=== PATIENT | male | born 1930 | race Caucasian/White ===

== ENCOUNTER 2016-08-04 09:36 | Inpatient (IN) | payer MEDICARE ==
[2016-08-04] VITALS (15 sets, daily range): BP systolic 140–199; BP diastolic 64–104; PULSE 63–112; RESP 19–20; TEMP 97.8–98.5; O2SAT 92–100
[~2016-08-04] VITALS: Ht 182.9 cm; Wt 80.4 kg
--- NOTE | 2016-08-04 09:58 | RADRPT ---
EXAM DATE/TIME: 08/04/2016 09:45 [place] COMPARISON: No previous studies available for comparison. INDICATIONS : Stroke alert, episode of unresponsiveness. RADIATION DOSE: 42.62 CTDIvol (mGy) This report was called by Mahnaz to Reyes at 9: 58 MEDICAL HISTORY : Stroke. SURGICAL HISTORY : None. ENCOUNTER: Initial ACUITY: 1 day PAIN SCALE: 0/10 LOCATION: Bilateral head TECHNIQUE: Multiple contiguous axial images were obtained of the head. Using automated exposure control and adj ustment of the mA and/or kV according to patient size, radiation dose was kept as low as reasonably a chievable to obtain optimal diagnostic quality images. FINDINGS: CEREBRUM: Areas of low attenuation seen throughout the white matter. The ventricles are normal for age. No melina dence of midline shift, mass lesion, hemorrhage or acute infarction. No extra-axial fluid collection s are seen. POSTERIOR FOSSA: The cerebellum and brainstem are intact. The 4th ventricle is midline. The cerebellopontine angle i s unremarkable. EXTRACRANIAL: The visualized portion of the orbits is intact. SKULL: The calvaria is intact. No evidence of skull fracture. 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 Roland Joya MD on August 04, 2016 at 9:52 Board Certified Radiologist. This report was verified electronically.
[2016-08-04 10:01] LABS: AUTOMATED NEUTROPHIL # 4.3 TH/MM3 (1.8-7.7); BASOPHIL # 0.1 TH/MM3 (0-0.2); BASOPHIL % 0.8 % (0.0-2.0); EOSINOPHIL # 0.4 TH/MM3 (0-0.4); EOSINOPHIL % 4.9 % (0.0-4.0); HEMO FLAGS DIFF FINAL; LYMPH % 22.8 % (9.0-44.0); LYMPHOCYTE # 1.6 TH/MM3 (1.0-4.8); MEAN CELL VOLUME 89.1 FL (80.0-100.0); MEAN CORPUSCULAR HEMOGLOBIN 29.8 PG (27.0-34.0); MEAN CORPUSCULAR HGB CONC 33.4 % (32.0-36.0); MONO % 11.2 % (0.0-8.0); NEUT % 60.3 % (16.0-70.0); PLATELET COUNT 235 TH/MM3 (150-450); RED BLOOD COUNT 4.49 MIL/MM3 (4.50-5.90); RED CELL DISTRIBUTION WIDTH 14.4 % (11.6-17.2); WHITE BLOOD COUNT 7.2 TH/MM3 (4.0-11.0)
[2016-08-04 10:04] LABS: I-STAT POTASSIUM 4.8 MMOL/L (3.5-4.9); I-STAT SODIUM 140 MMOL/L (138-146)
[2016-08-04 10:10] LABS: PROTHROMBIN TIME - PATIENT 11.8 SEC (9.8-11.6)
[2016-08-04 10:12] LABS: APTT (PATIENT) 29.6 SEC (24.3-30.1); INTERNATIONAL NORMALIZED RATIO 1.1 RATIO
[2016-08-04 10:25] LABS: CREATINE KINASE 251 U/L (39-308)
[2016-08-04] MEDS ORDERED: SIMV20TA PO (10:36)
[2016-08-04] MEDS ORDERED: TAMS0.4C4 PO (10:36)
[2016-08-04] MEDS ORDERED: ASPI81CH CHEW (10:36)
[2016-08-04 10:50] LABS: BLOOD, URINE NEG (NEG); GLUCOSE,URINE NEG (NEG); HYALINE CAST, URINE 2 /lpf (RARE); KETONE, URINE 10 mg/dL (NEG); MUCUS URINE FEW /lpf (OCC); NITRITE,URINE NEG (NEG); PH, URINE 7.5 (5.0-8.5); URINE COLOR LIGHT-YELLOW (YELLW/STRAW)
[2016-08-04] MEDS ORDERED: LORazepam 2 MG/ML VIAL IV PUSH ONE ×2 (11:00→11:15)
[2016-08-04] MEDS ORDERED: ASPIRIN 300 MG SUPP RECTAL ONE (12:15)
--- NOTE | 2016-08-04 12:26 | EKG ---
Date Performed: 08/04/2016 Time Performed: 10:05:15 PTAGE: 86 years EKG: Sinus rhythm WITH FIRST DEGREE AV BLOCK MARKED LEFT AXIS DEVIATION INCOMPLETE RIGHT BUNDLE BRANCH BLOCK ABNORMAL ECG NO PREVIOUS TRACING DOCTOR: Mahad Bueno Interpretating Date/Time 08/04/2016 12:24:26
--- NOTE | 2016-08-04 12:30 | HHI.HP ---
HPI Service Family Medicine Primary Care Physician No Primary Care Physician Admission Diagnosis intermittent expressive aphasia Diagnoses: International Travel<30 Days: No Contact w/Intl Traveler<30days: No Known Affected Area: No History of Present Illness History obtained from daughter: ONEL Patient is an 86-year-old male with history significant for vascular dementia who presented here today due to altered mental status. This morning patient was going to breakfast and then began to stare at his food and acting confused at 8:30 AM. The assisted living facility called the ambulance and transported patient to the hospital for concern of a stroke. On arrival to the ED, symptoms had resolved but then recurred again at 10:30 AM. He started acting confused and gargling words. Intermittently answering questions such as his name but unable to answer more current event questions. Prior to the onset of symptoms today, daughter reports that patient was otherwise his normal self. He had been complaining of a headache over the last week and reported a fall a few days ago but was able to get up independently. Daughter denies any symptoms of fever/chills, abdominal pain, dysuria, cough. Daughter reports that he follows with drum carrier who does cry ultrasounds on a regular basis but has been appropriate for age. Patient is unable to thoroughly answer questions but does deny pain. (Gracie Henning MD R2) Review of Systems ROS Limitations: Altered Mental Status (Gracie Jernigan MD R2) Past Family Social History Past Medical History HLD Vascular dementia BPH Past Surgical History Gastric ulcer surgery as an adolescent Gastritis Reported Medications Reported Meds & Active Scripts Active Reported Tamsulosin (Tamsulosin HCl) 0.4 Mg Cap 0.4 Mg PO HS Simvastatin 20 Mg Tab 20 Mg PO DAILY Aspirin 81 Mg Chew 81 Mg CHEW DAILY (Gracie Jernigan MD R2) Allergies: Coded Allergies: No Known Allergies (Unverified , 08/04/16) Family History Family history of cancer of unknown etiology Social History Lives at assisted living [facility], [facility] Smoked tobacco in the 70s Alcohol: Will have a glass of red wine periodically No illicit drug use Daughter is the healthcare surrogate (Jordyn Oakley) (Gracie Jernigan MD R2 ) Physical Exam Vital Signs Vital Signs Date Time Temp Pulse Resp B/P Pulse Ox O2 Delivery O2 Flow Rate FiO2 08/04/16 12:04 93 176/104 Nasal Cannula 3 08/04/16 10:58 84 140/64 Nasal Cannula 3 08/04/16 10:22 67 149/83 100 Nasal Cannula 3 08/04/16 10:00 81 20 179/95 92 Nasal Cannula 2 08/04/16 10:00 100 Nasal Cannula 08/04/16 09:59 63 179/95 100 Nasal Cannula 2 08/04/16 09:52 63 162/92 100 Nasal Cannula 2 08/04/16 09:45 65 187/91 100 Nasal Cannula 2 08/04/16 09:37 98.5 68 20 199/100 100 08/04/16 09:30 100 Nasal Cannula 2.00 08/04/16 09:30 100 2.00 Physical Exam GENERAL: This is a well-developed patient laying in bed. Mildly agitated but is consolable. Unable to follow commands. SKIN: No rashes, ecchymoses or lesions. Cool and dry. (Exam limited as patient is currently in upper and lower extremity restraints) EYES: Pupils equal round and reactive. No scleral icterus. No injection or drainage. ENT: Nose without bleeding, purulent drainage. Unable to examine as patient did not open his mouth. CARDIOVASCULAR: Regular rate and rhythm without murmurs, gallops, or rubs. RESPIRATORY: Clear to auscultation. Breath sounds equal bilaterally. No wheezes , rales, or rhonchi. GASTROINTESTINAL: Abdomen soft, non-tender, nondistended. No hepato-splenomegaly , or palpable masses. No guarding. MUSCULOSKELETAL: Extremities without clubbing, cyanosis, or edema. No calf tenderness. NEUROLOGICAL: Awake and alert. No obvious focal deficits. Only able to state name. Babinski testing unremarkable. Patellar tendon reflexes 2+ bilaterally. Laboratory Laboratory Tests Test 08/04/16 08/04/16 08/04/16 09:40 09:41 10:10 Bedside Hemoglobin 13.6 Bedside Hematocrit 40.0 Prothrombin Time 11.8 Prothromb Time International 1.1 Ratio Activated Partial 29.6 Thromboplast Time Fibrinogen 270 Bedside Sodium 140 Bedside Potassium 4.8 Bedside Chloride 102 Bedside Blood Urea Nitrogen 28 Bedside Creatinine 1.0 Bedside Glucose 93 Lactic Acid Level 1.1 Total Creatine Kinase 251 Troponin I LESS THAN 0.02 Blood Type O POSITIVE Antibody Screen NEGATIVE Blood Bank Comment White Blood Count 7.2 Red Blood Count 4.49 Hemoglobin 13.4 Hematocrit 40.0 Mean Corpuscular Volume 89.1 Mean Corpuscular Hemoglobin 29.8 Mean Corpuscular Hemoglobin 33.4 Concent Red Cell Distribution Width 14.4 Platelet Count 235 Mean Platelet Volume 8.2 Neutrophils (%) (Auto) 60.3 Lymphocytes (%) (Auto) 22.8 Monocytes (%) (Auto) 11.2 Eosinophils (%) (Auto) 4.9 Basophils (%) (Auto) 0.8 Neutrophils # (Auto) 4.3 Lymphocytes # (Auto) 1.6 Monocytes # (Auto) 0.8 Eosinophils # (Auto) 0.4 Basophils # (Auto) 0.1 CBC Comment DIFF FINAL Differential Comment Urine Color LIGHT-YELLOW Urine Turbidity CLEAR Urine pH 7.5 Urine Specific [place] 1.011 Urine Protein NEG Urine Glucose (UA) NEG Urine Ketones 10 Urine Occult Blood NEG Urine Nitrite NEG Urine Bilirubin NEG Urine Urobilinogen LESS THAN 2.0 Urine Leukocyte Esterase NEG Urine RBC 1 Urine WBC LESS THAN 1 Urine Hyaline Casts 2 Urine Mucus FEW (Gracie Jernigan MD R2) Result Diagram: 08/04/16 0941 Imaging Last Impressions Head CT 08/04/16 0000 Signed Impressions: Service Date/Time: Thursday, August 04, 2016 09:45 - CONCLUSION: Extensive white matter changes 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 Roland Joya MD (Gracie Jernigan MD R2) Assessment and Plan Assessment and Plan 86-year-old male with history significant for vascular dementia. Admitted for altered mental status/stroke alert Code Status DNR Discussed Condition With Dr. Gonzalez and Dr. Plaza (Gracie Jernigan MD R2) Attending Attestation Patient seen and examined. Case reviewed and discussed with the resident team. Agree with plan of care as discussed with me and documented in the resident note. (Yuliana Plaza MD) Problem List: (1) Altered mental state Status: Acute Plan: Acute onset of altered mental status that occurred on the morning of . Symptoms initially resolved but had a recurrence a few hours later; associated with garbled speech. No focal neurological deficits present. Head CT negative. Stroke alert was called but patient was not a candidate for TPA. 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 Medications: * Aspirin 325mg daily * Lipitor 20mg daily (2) Vascular dementia Status: Acute Plan: History significant for vascular dementia. High risk for recurrent ischemic stroke events. -See more detail plan above (3) Nutrition, metabolism, and development symptoms Status: Acute Plan: Diet: NPO until evaluated with swallow test Electrolyte: unremarkable, continue to monitor Fluids: NS at 75 DVT PPX: SCDs until EEG is completed GI PPX: not indicated Chronic conditions: * BPH: continue home tamsulosin (Gracie Jernigan MD R2) Physician Certification 2 Midnight Certification Type: Admission for Inpatient Services Order for Inpatient Services The services are ordered in accordance with Medicare regulations or non- Medicare payer requirements, as applicable. In the case of services not specified as inpatient-only, they are appropriately provided as inpatient services in accordance with the 2-midnight benchmark. Estimated LOS (days): 2 days is the estimated time the patient will need to remain in the hospital, assuming treatment plan goals are met and no additional complications. Post-Hospital Plan: SNF (Gracie Jernigan MD R2) Problem Qualifiers (1) Altered mental state: Qualified Code: R41.82 - Altered mental status, unspecified altered mental status type Gracie Jernigan MD R2 Aug 04, 2016 12:30 Yuliana Plaza MD Aug 04, 2016 14:06
--- NOTE | 2016-08-04 12:53 | PD ---
HPI Chief Complaint: Stroke Alert Time Seen by Provider: 09:41 Travel History International Travel<30 days: No Contact w/Intl Traveler<30days: No Traveled to known affect area: No History of Present Illness HPI 86-year-old male presents by ambulance as a stroke alert. His last seen normal was at 8:30. He came down to breakfast and was acting himself till he just started staring off and not interacting appropriately. 3 minutes prior to arrival in the emergency department at approximately 933 patient return to baseline and has no acute complaints at this time. Patient denies pain, sensory defect and does not recall prior episode. He states that he does take a baby aspirin a day. History is limited as patient cannot give details of prior event. [facility] Past Medical History Medical History: Unable to Obtain Cerebrovascular Accident: Yes (HX STROKES PER [facility] REPORT) Diminished Hearing: Yes (RT HEARING AID) Tetanus Vaccination: Unknown Past Surgical History Surgical History: Unable to Obtain Abdominal Surgery: Yes Social History Alcohol Use: No Tobacco Use: No Substance Use: No Allergies-Medications (Allergen,Severity, Reaction): Coded Allergies: No Known Allergies (Unverified , 08/04/16) Reported Meds & Prescriptions Reported Meds & Active Scripts Active Reported Tamsulosin (Tamsulosin HCl) 0.4 Mg Cap 0.4 Mg PO HS Simvastatin 20 Mg Tab 20 Mg PO DAILY Aspirin 81 Mg Chew 81 Mg CHEW DAILY Review of Systems ROS Limitations: Altered Mental Status (episode) Except as stated in HPI: all other systems reviewed are Neg Physical Exam Exam Limitations: Altered Mental Status (episode) Narrative GENERAL: Well-nourished, well-developed patient. SKIN: Warm and dry. HEAD: Normocephalic and atraumatic. EYES: No injection or drainage. Pupils equal ENT: No nasal drainage noted. NECK: Supple, trachea midline. CARDIOVASCULAR: Regular rate and rhythm RESPIRATORY: Breath sounds equal bilaterally. No accessory muscle use. GASTROINTESTINAL: Abdomen soft, non-tender, nondistended. EXTREMITIES: No edema. NEUROLOGICAL: Awake and alert. Motor and sensory grossly within normal limits. Normal speech. Equal grasp bilaterally, no pronator drift Data Data Last Documented VS Vital Signs Date Time Temp Pulse Resp B/P Pulse Ox O2 Delivery O2 Flow Rate FiO2 08/04/16 12:04 93 176/104 Nasal Cannula 3 08/04/16 10:22 100 08/04/16 10:00 20 08/04/16 09:37 98.5 Orders Diet Npo (08/04/16 Breakfast) Activity Bed Rest (08/04/16 ) Electrocardiogram (08/04/16 ) I-Stat Creatinine (08/04/16 09:41) I-Stat Profile (08/04/16 09:41) Prothrombin Time / Inr (Pt) (08/04/16 09:41) Act Partial Throm Time (Ptt) (08/04/16 09:41) Complete Blood Count With Diff (08/04/16 09:41) Fibrinogen (08/04/16 09:41) Creatine Kinase (Cpk) (08/04/16 09:41) Troponin I (08/04/16 09:41) Ua Includes Microscopic (08/04/16 09:41) Drug Screen, Random Urine (08/04/16 09:41) Type And Screen (08/04/16 09:41) Ct Brain W/O Iv Contrast(Rout) (08/04/16 ) Consult Neurology (08/04/16 ) Blood Glucose (08/04/16 09:41) Ecg Monitoring (08/04/16 09:41) Neuro Checks Q2HX12,Q4H (08/04/16 09:41) Nursing Bedside Swallow Assess .ONCE (08/04/16 09:41) Iv Access Insert/Monitor (08/04/16 09:41) NPO (08/04/16 09:41) Oximetry (08/04/16 09:41) Oxygen Administration (08/04/16 09:41) Resp Oxygen [place] C Titrat 1-4 L (08/04/16 09:41) Cath For Specimen (08/04/16 09:41) Lactic Acid (08/04/16 09:40) (Hub Use Only)Inp Phy Cons/Ref (08/04/16 ) Lorazepam Inj (Ativan Inj) (08/04/16 11:00) Mri Brain W/O Contrast (08/04/16 ) Lorazepam Inj (Ativan Inj) (08/04/16 11:15) Hepatic Functional Panel (08/04/16 11:58) Thyroid Stimulating Hormone (08/04/16 11:58) Portable Eeg (08/04/16 ) Admit Order (Ed Use Only) (08/04/16 12:11) Aspirin Supp (Aspirin Supp) (08/04/16 12:15) Labs Laboratory Tests Test 08/04/16 08/04/16 08/04/16 09:40 09:41 10:10 Bedside Hemoglobin 13.6 G/DL Bedside Hematocrit 40.0 % Prothrombin Time 11.8 SEC Prothromb Time International 1.1 RATIO Ratio Activated Partial 29.6 SEC Thromboplast Time Fibrinogen 270 mg/dL Bedside Sodium 140 MMOL/L Bedside Potassium 4.8 MMOL/L Bedside Chloride 102 MMOL/L Bedside Blood Urea Nitrogen 28 MG/DL Bedside Creatinine 1.0 MG/DL Bedside Glucose 93 MG/DL Lactic Acid Level 1.1 mmol/L Total Creatine Kinase 251 U/L Troponin I LESS THAN 0.02 NG/ML Blood Type O POSITIVE Antibody Screen NEGATIVE Blood Bank Comment White Blood Count 7.2 TH/MM3 Red Blood Count 4.49 MIL/MM3 Hemoglobin 13.4 GM/DL Hematocrit 40.0 % Mean Corpuscular Volume 89.1 FL Mean Corpuscular Hemoglobin 29.8 PG Mean Corpuscular Hemoglobin 33.4 % Concent Red Cell Distribution Width 14.4 % Platelet Count 235 TH/MM3 Mean Platelet Volume 8.2 FL Neutrophils (%) (Auto) 60.3 % Lymphocytes (%) (Auto) 22.8 % Monocytes (%) (Auto) 11.2 % Eosinophils (%) (Auto) 4.9 % Basophils (%) (Auto) 0.8 % Neutrophils # (Auto) 4.3 TH/MM3 Lymphocytes # (Auto) 1.6 TH/MM3 Monocytes # (Auto) 0.8 TH/MM3 Eosinophils # (Auto) 0.4 TH/MM3 Basophils # (Auto) 0.1 TH/MM3 CBC Comment DIFF FINAL Differential Comment Urine Color LIGHT-YELLOW Urine Turbidity CLEAR Urine pH 7.5 Urine Specific [place] 1.011 Urine Protein NEG mg/dL Urine Glucose (UA) NEG mg/dL Urine Ketones 10 mg/dL Urine Occult Blood NEG Urine Nitrite NEG Urine Bilirubin NEG Urine Urobilinogen LESS THAN 2.0 MG/DL Urine Leukocyte Esterase NEG Urine RBC 1 /hpf Urine WBC LESS THAN 1 /hpf Urine Hyaline Casts 2 /lpf Urine Mucus FEW /lpf MDM Medical Screen Exam Complete: Yes Emergency Medical Condition: Yes Medical Record Reviewed: Yes (past history confirmed) Differential Diagnosis TIA, stroke, mass, bleed, seizure, delirium Narrative Course Patient arrived with symptoms resolved. Stroke alert was continued. Workup ordered CT brain shows white matter disease without bleed or mass. Patient not TPA candidate given symptoms resolved 10:15 patient had episode of garbled speech and slurring of words when you ask him certain questions. He can state his name and date of without difficulty but then when you ask him what today's date is or to have him perform certain movements of the neuro exam he just says garbled words. Neurologist updated. 1120 patient given Ativan 1 mg over 2 doses of a half a milligram to try to coordinate MRI testing. He was unable to stay still and came back to the department 1126 Dr. Ceron updated and will come to bedside to discuss patient's care 1140 Dr. Ceron came to bedside and states currently not TPA candidate given risk of bleed and intermittent nature with no clear-cut stroke presentation. Lengthy discussion with daughter at bedside and she agrees who is his healthcare surrogate. She states he has an outside DNR and this will be maintained. She was updated and he will be admitted to the ICU for closer monitoring. Critical Care Narrative Aggregate critical care time was 70 minutes. Time to perform other separately billable procedures was not included in the critical care time. My time did not include minutes spent treating any other patients simultaneously or on activities that did not directly contribute to the patient's treatment. The services I provided to this patient were to treat and/or prevent clinically significant deterioration that could result in: Bleed, mass, hypertensive urgency I provided critical care services requiring my management, as noted below: Chart data review, documentation time, medication orders and management, vital sign assessments/reviewing monitor data, ordering and reviewing lab tests, ordering and interpreting/reviewing x-rays and diagnostic studies, care of the patient and discussion of the patient with the admitting physicians. Stroke Alert NIHSS NIH Stroke Scale Result: 0 NIHSS Time Completed: 09:40 Thrombolytic Contraindications Contraindications Comment: Patient with resolution of symptoms during window and having intermittent slurred and garbled speech with high risk of bleed, daugther who is surrogate agrees Procedures Interpretation(s) EKG is sinus rhythm at 60 without STEMI criteria I stats without emergent findings CBC & BMP Diagram 08/04/16 09:41 Last [address] 08/04/16 0000 Signed Impressions: Service Date/Time: Thursday, August 04, 2016 09:45 - CONCLUSION: Extensive white matter changes 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 Roland Joya MD Physician Communication Physician Communication dr ceron agrees not TPA candidate as at baseline dr ceron states to get stat MRI dr ceron will come to bedside dr ceron states no TPA, get stat EEG, give aspirin and will follow resident team agrees to admit Diagnosis Diagnosis: Primary Impression: Altered mental state Qualified Code: R41.82 - Altered mental status, unspecified altered mental status type Additional Impression: Hypertensive urgency Admitting Physician Requests: Admit Lennie Chambers MD Aug 04, 2016 12:53
[2016-08-04] MEDS ORDERED: ENALAPRILAT 1.25 MG/ML VIAL IV PRN (13:00)
[2016-08-04] MEDS ORDERED: SODIUM CHLORIDE 0.9% FLUSH 5 ML FLUSH IVF PRN (13:00)
[2016-08-04] MEDS ORDERED: GLUCAGON 1 MG/ML VIAL IM/SQ PRN (13:00)
[2016-08-04] MEDS ORDERED: DEXTROSE 50% IN WATER 50 ML VIAL(D50) IV PUSH PRN (13:00)
--- NOTE | 2016-08-04 13:06 | HHI.FPPN ---
Subjective Remarks Pt. seen, examined and discussed with the medicine team. This is an 86 yo male from [facility] who was in his usual state of health until this a.m. where he developed sudden onset of staring off, not verbally responding. Upon transport via [facility], stroke alert was called but he was alert and communicating appropriately on admission with GCS 15. Then he developed some acute agitation, slurring of speech, frustration and now is only able to clearly give us his name. His daughter Jordyn is with him and gives us his history. Per his [facility] facility, he has been having headaches for the past week, and at some time he had a fall and was down for an unspecified period of time. Otherwise he has been fairly well. Known progressive dementia. Meds include ASA, tamsulosin and simvastatin. NKDA Sees Dr. Sands q 6 months to monitor his carotids. Daughter is DPOA for health care and confirms DNR. Son is a family doctor in the [place] and is on board with his dad's wishes. See H&P for this admission for additional past, family and socialhistory. ROS is only for headaches and fall as noted above. Objective Vitals Vital Signs Date Time Temp Pulse Resp B/P Pulse Ox O2 Delivery O2 Flow Rate FiO2 08/04/16 12:04 93 176/104 Nasal Cannula 3 08/04/16 10:58 84 140/64 Nasal Cannula 3 08/04/16 10:22 67 149/83 100 Nasal Cannula 3 08/04/16 10:00 81 20 179/95 92 Nasal Cannula 2 08/04/16 10:00 100 Nasal Cannula 08/04/16 09:59 63 179/95 100 Nasal Cannula 2 08/04/16 09:52 63 162/92 100 Nasal Cannula 2 08/04/16 09:45 65 187/91 100 Nasal Cannula 2 08/04/16 09:37 98.5 68 20 199/100 100 08/04/16 09:30 100 Nasal Cannula 2.00 08/04/16 09:30 100 2.00 Result Diagram: 08/04/16 0941 Other Results Laboratory Tests Test 08/04/16 08/04/16 08/04/16 09:40 09:41 10:10 Bedside Hemoglobin 13.6 G/DL Bedside Hematocrit 40.0 % Prothrombin Time 11.8 SEC Prothromb Time International 1.1 RATIO Ratio Activated Partial 29.6 SEC Thromboplast Time Fibrinogen 270 mg/dL Bedside Sodium 140 MMOL/L Bedside Potassium 4.8 MMOL/L Bedside Chloride 102 MMOL/L Bedside Blood Urea Nitrogen 28 MG/DL Bedside Creatinine 1.0 MG/DL Bedside Glucose 93 MG/DL Lactic Acid Level 1.1 mmol/L Total Creatine Kinase 251 U/L Troponin I LESS THAN 0.02 NG/ML Blood Type O POSITIVE Antibody Screen NEGATIVE Blood Bank Comment White Blood Count 7.2 TH/MM3 Red Blood Count 4.49 MIL/MM3 Hemoglobin 13.4 GM/DL Hematocrit 40.0 % Mean Corpuscular Volume 89.1 FL Mean Corpuscular Hemoglobin 29.8 PG Mean Corpuscular Hemoglobin 33.4 % Concent Red Cell Distribution Width 14.4 % Platelet Count 235 TH/MM3 Mean Platelet Volume 8.2 FL Neutrophils (%) (Auto) 60.3 % Lymphocytes (%) (Auto) 22.8 % Monocytes (%) (Auto) 11.2 % Eosinophils (%) (Auto) 4.9 % Basophils (%) (Auto) 0.8 % Neutrophils # (Auto) 4.3 TH/MM3 Lymphocytes # (Auto) 1.6 TH/MM3 Monocytes # (Auto) 0.8 TH/MM3 Eosinophils # (Auto) 0.4 TH/MM3 Basophils # (Auto) 0.1 TH/MM3 CBC Comment DIFF FINAL Differential Comment Urine Color LIGHT-YELLOW Urine Turbidity CLEAR Urine pH 7.5 Urine Specific [place] 1.011 Urine Protein NEG mg/dL Urine Glucose (UA) NEG mg/dL Urine Ketones 10 mg/dL Urine Occult Blood NEG Urine Nitrite NEG Urine Bilirubin NEG Urine Urobilinogen LESS THAN 2.0 MG/DL Urine Leukocyte Esterase NEG Urine RBC 1 /hpf Urine WBC LESS THAN 1 /hpf Urine Hyaline Casts 2 /lpf Urine Mucus FEW /lpf Imaging Last Impressions Head CT 08/04/16 0000 Signed Impressions: Service Date/Time: Thursday, August 04, 2016 09:45 - CONCLUSION: Extensive white matter changes 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 Roland Joya MD Objective Remarks O. CONSTITUTIONAL/GEN: normally nourished, agitated, resisting his soft restraints. EYES: conjunctiva normal, PERRLA, EOMI. ENT: MM moist, has his own teeth. NECK: thyroid midline, carotids symmetrical. LUNGS: clear A-P, respiratory effort is normal. CARDIOVASCULAR: RR without murmur or gallop. No significant edema. GI/ABD: soft without masses, without organomegaly. Normal BS +, midline scar well-healed from surgery as a teen. NEURO: No focal deficits. SKIN: color normal, no rashes noted. HEME/LYMPH: no bruising, petechia or significant adenopathy MUSC: Extremities are normal in appearance. PSYCH/MENTAL STATUS: Agitated, unable to answer questions other than his name. A/P Assessment and Plan 86 yo male with history per daughter of small strokes who today became acutely altered, staring off; now with agitation and inability to answer questions other than his name. Attending Attestation Patient seen and examined. Case reviewed and discussed with the resident team. Agree with plan of care as discussed with me and documented in the resident note. Yuliana Plaza MD Aug 04, 2016 13:06 Yuliana Plaza MD Aug 04, 2016 13:06
[2016-08-04 13:45] LABS: INDIRECT BILIRUBIN 0.1 MG/DL (0.0-0.8); TOTAL BILIRUBIN ADULT 0.2 MG/DL (0.2-1.0)
[2016-08-04] MEDS ORDERED: ACETAMINOPHEN 325 MG TAB PO PRN (13:45)
[2016-08-04] MEDS ORDERED: ACETAMINOPHEN/HYDROcodone 325 MG/7.5 MG TAB PO PRN (13:45)
[2016-08-04] MEDS ORDERED: ACETAMINOPHEN/HYDROcodone 325 MG/5 MG TAB PO PRN (13:45)
[2016-08-04] MEDS ORDERED: NALOXONE HCL 0.4 MG/ML AMP IV PRN (13:45)
--- NOTE | 2016-08-04 13:50 | RADRPT ---
EXAM DATE/TIME: 08/04/2016 13:35 [facility] COMPARISON: No previous studies available for comparison. INDICATIONS : Stroke, combative. MEDICAL HISTORY : None. SURGICAL HISTORY : None. ENCOUNTER: Initial ACUITY: 1 day PAIN SCORE: Non-responsive. LOCATION: chest FINDINGS: A single view of the chest demonstrates the lungs to be symmetrically aerated without evidence of mas s, infiltrate or effusion. The cardiomediastinal contours are unremarkable. Osseous structures are intact. CONCLUSION: No acute disease. Manny Fuller MD on August 04, 2016 at 13:47 Board Certified Radiologist. This report was verified electronically.
[2016-08-04] MEDS: SODIUM CHLOR 0.9% 1000 ML INJ 1,000 ML IV SCH (15:03)
[2016-08-04 15:57] LABS: AMPHETAMINE, URINE NEG (NEG); BARBITURATES, URINE NEG (NEG); COCAINE, URINE NEG (NEG)
[2016-08-04] MEDS: INSULIN ASPART SUPPLEMENTAL SCALE SQ SCH ×2 (16:00→21:00)
[2016-08-04] MEDS ORDERED: HALOPERIDOL LACTATE 5 MG/ML AMP IM ONE (21:15)
[2016-08-04] MEDS: ATORVASTATIN 20 MG TAB PO SCH (21:20)
[2016-08-04] MEDS: SODIUM CHLORIDE 0.9% FLUSH 5 ML FLUSH IVF SCH (21:21)
--- NOTE | 2016-08-04 23:07 | RADRPT ---
EXAM DATE/TIME: 08/04/2016 22:29 [facility] COMPARISON: CT BRAIN W/O CONTRAST, August 04, 2016, 9:45. INDICATIONS : CVA. MEDICAL HISTORY : None. SURGICAL HISTORY : Abdomen surgery about70 years ago. ENCOUNTER: Initial ACUITY: 1 day PAIN SCORE: Nonresponsive. LOCATION: Bilateral cranial TECHNIQUE: Multiplanar, multisequence MRI of the brain was performed without contrast. FINDINGS: No evidence for acute infarction on diffusion weighted imaging. There is diffuse atrophy and moderate confluent increased T2 signal in the bilateral subcortical white matter, centrum semiovale and periv entricular white matter, patchy basal ganglia and pontine hyperintensity characteristic of chronic mi crovascular ischemic disease. There were no signs of acute infarct, hemorrhage, or mass. CONCLUSION: 1. Atrophy and extensive white matter disease without evidence for acute infarction. Robert Wallis MD on August 04, 2016 at 23:05 Board Certified Radiologist. This report was verified electronically.
--- NOTE | 2016-08-04 23:23 | RADRPT ---
EXAM DATE/TIME: 08/04/2016 22:29 [facility] COMPARISON: No previous studies available for comparison. INDICATIONS : CVA. MEDICAL HISTORY : None. SURGICAL HISTORY : Abdomen surgery about 70 years ago. ENCOUNTER: Initial ACUITY: 1 day PAIN SCORE: Nonresponsive. LOCATION: Bilateral cranial Please note a normal MRA of the brain does not entirely exclude the possibility of a small aneurysm, nor the possibility of distal intracranial vessel disease. TECHNIQUE: 3D time of flight MRA was performed. Source images, multiplanar STS MIP, and 3D volume MIP reconstru ctions were reviewed. FINDINGS: There is excellent visualization of the major intracranial arteries out to the second-order branch ve ssels. There is no evidence for aneurysm, vessel truncation or stenosis, and no evidence for vascula r malformation. CONCLUSION: No acute disease. Robert Wallis MD on August 04, 2016 at 23:20 Board Certified Radiologist. This report was verified electronically.
[2016-08-05] VITALS (13 sets, daily range): BP systolic 127–188; BP diastolic 63–88; PULSE 61–76; RESP 14–32; TEMP 97.4–98.4; O2SAT 90–99
[2016-08-05 05:04] LABS: HDL CHOLESTEROL 62.4 MG/DL (40.0-60.0)
--- NOTE | 2016-08-05 05:33 | MB ---
cc: BILLY SAEZ DATE OF CONSULTATION 08/04/2016 REASON FOR CONSULTATION Stroke Alert. HISTORY OF PRESENT ILLNESS An 86-year-old male is seen after a Stroke Alert was called. The patient's confused, hence the medical history is obtained from the EMS, ED physician and medical records. The patient has past medical history of vascular dementia. The patient was found to be confused during breakfast and staring. Upon arrival to the ED, the symptoms had resolved, then again recurred 2 hours later. He started getting confused and gargling words. The patient has been complaining of headache over the last week, reported a fall a few days ago. NIH Stroke Scale was low and the head CT scan without contrast revealed extensive white matter and paraventricular chronic ischemic changes that may be concerning for cerebral amyloid angiopathy and the patient was not deemed a t-PA candidate because of resolution of symptoms, low NIH stroke scale and extensive white matter disease found on the brain imaging. REVIEW OF SYSTEMS A 12-point review of systems is negative except for what is stated in the HPI. PAST MEDICAL HISTORY Unable to obtain but from medical records - 1. Hyperlipidemia. 2. Vascular dementia. 3. BPH. PAST SURGICAL HISTORY 1. Gastric ulcer surgery. 2. Gastritis. MEDICATIONS 1. Aspirin. 2. Simvastatin. ALLERGIES No known allergies. FAMILY HISTORY Noncontributory SOCIAL HISTORY Lives in assisted living facility. Ex-tobacco smoker, quit more than 40 years ago. He will have a glass of wine and no illicit drugs. PHYSICAL EXAMINATION GENERAL: The patient is confused, irritable, unable to follow commands. No signs of external trauma. HEENT: Atraumatic, normocephalic. Unable to assess hearing and vision. NECK: No signs of meningeal irritation. Carotids - no carotid bruits. CARDIOVASCULAR: Regular rate and rhythm. RESPIRATORY: Clear to auscultation. No wheezes. MUSCULOSKELETAL: Moves all extremities equally with no clubbing, cyanosis or edema. NEUROLOGICAL: The patient is drowsy, agitated. Opens eyes to verbal commands. Does not follow commands, moves all extremities spontaneously. Opens his eyes. No gaze paresis. Pupils are 3 mm, bilaterally, equal. No noted facial palsy. Reflexes are 2+ bilateral. Plantars are bilaterally downgoing. LABORATORY DATA Hemoglobin 13.6.INR 1.1.Sodium 140, potassium 4.8, BUN 28, creatinine 1, glucose 93, lactic acid 1.1. 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 DIAGNOSTIC IMPRESSION 1. Encephalopathy. 2. Likely secondary to metabolic/infectious etiology. Another possible etiology is nonconvulsive seizures. 3. Less likely to be an ischemic stroke secondary to a nonfocal examination. However, we will pursue with the workup. 4. Vascular dementia as per medical records. 5. The patient is not a t-PA candidate. PLAN 1. Neuro checks q. 1 hourly. 2. Admit to the intensive care unit. 3. MRI brain. 4. EEG. 5. Telemetry. 6. Cardiac echo. 7. Continue aspirin 81 mg home dose. 8. DVT prophylaxis - SCDs. 9. GI prophylaxis. Thank you for the opportunity to participate in the care of your patient. MD JESI Mitchell/AGAPITO /11:11 PM /5:14 AM MTDMichelle
[2016-08-05] MEDS: INSULIN ASPART SUPPLEMENTAL SCALE SQ SCH ×4 (07:00→20:32)
[2016-08-05] MEDS ORDERED: HALOPERIDOL LACTATE 5 MG/ML AMP IM PRN (08:00)
--- NOTE | 2016-08-05 08:21 | HHI.FPPN ---
Subjective Remarks Patient in bed, HOB flat. Continues to have slurred speech. Not aware of location. Overnight patient was confused. (Yoli Daigle MD) Objective Vitals Vital Signs Date Time Temp Pulse Resp B/P Pulse Ox O2 Delivery O2 Flow Rate FiO2 08/05/16 06:01 66 08/05/16 06:00 76 08/05/16 06:00 98.0 66 32 167/75 95 08/05/16 04:00 69 08/05/16 02:00 69 08/05/16 00:00 98.4 65 14 165/72 96 08/05/16 00:00 65 08/04/16 22:00 95 08/04/16 20:00 98.2 100 19 178/74 96 08/04/16 20:00 100 08/04/16 18:00 112 08/04/16 16:00 97.8 100 20 152/96 98 08/04/16 16:00 100 08/04/16 15:00 106 08/04/16 14:15 142/99 08/04/16 12:04 93 176/104 Nasal Cannula 3 08/04/16 10:58 84 140/64 Nasal Cannula 3 08/04/16 10:22 67 149/83 100 Nasal Cannula 3 08/04/16 10:00 81 20 179/95 92 Nasal Cannula 2 08/04/16 10:00 100 Nasal Cannula 08/04/16 09:59 63 179/95 100 Nasal Cannula 2 08/04/16 09:52 63 162/92 100 Nasal Cannula 2 08/04/16 09:45 65 187/91 100 Nasal Cannula 2 08/04/16 09:37 98.5 68 20 199/100 100 08/04/16 09:30 100 Nasal Cannula 2.00 08/04/16 09:30 100 2.00 I/O 08/04/16 08/04/16 08/04/16 08/05/16 08/05/16 08/05/16 07:00 15:00 23:00 07:00 15:00 23:00 Intake Total 611 ml 515 ml Output Total 275 ml 250 ml Balance 336 ml 265 ml Intake IV Total 611 ml 515 ml Output Urine Total 275 ml 250 ml (Yoli Daigle MD) Result Diagram: 08/04/16940 Objective Remarks GEN: normally nourished, agitated, resisting his soft restraints. EYES: conjunctiva normal, PERRLA, EOMI. ENT: MM moist, has his own teeth. NECK: thyroid midline, carotids symmetrical. LUNGS: clear A-P, respiratory effort is normal. CARDIOVASCULAR: RR without murmur or gallop. No significant edema. GI/ABD: soft without masses, without organomegaly. Normal BS +, midline scar well-healed from surgery as a teen. NEURO: No focal deficits. SKIN: color normal, no rashes noted. HEME/LYMPH: no bruising, petechia or significant adenopathy MUSC: Extremities are normal in appearance. PSYCH/MENTAL STATUS: Agitated, unable to answer questions other than his name. (Yoli Daigle MD) Urinary Catheter: No (condom cath) Assessment to: Continue Rubio insert reason: Measure Accurate Output Date of Insertion: Aug 04, 2016 (Yoli Daigle MD) A/P Assessment and Plan 86-year-old male with history significant for vascular dementia. Admitted for altered mental status/stroke alert. sdw: Lisa Barry Discharge Planning pending further workup, possible 2-3 days (Yoli Daigle MD) Attending Attestation Patient seen and examined. Case reviewed and discussed with the resident team. Agree with plan of care as discussed with me and documented in the resident note. (Yuliana Plaza MD) Problem List: (1) Altered mental state Status: Acute Plan: Acute onset of altered mental status that occurred on the morning of . Symptoms initially resolved but had a recurrence in the emergency department; associated with garbled speech. No focal neurological deficits present. Head CT negative. No sign of infarction on brain MRI, MRA. Stroke alert was called but patient was not a candidate for TPA. DDX TIA/ischemic stroke vs UTI vs PNA vs seizure. -CMP, TSH, ammonia unremarkable -A1c pending -Neuro checks, permissive HTN, HOB flat, plan to attempt BP control after 24 hrs -Cardiac telemetry -Echo and EEG ordered -PT/OT consulted Neurology consulted: appreciate recommendations * EEG, Haldol prior to study Imaging: * MRI, MRA: unremarkable * CXR: ordered * Head CT: Extensive white matter changes 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 Medications: * Aspirin 325mg daily * Lipitor 20mg daily BP Meds: * No home antihypertensives * Lisinopril 10 mg po daily * Vasotec 1.25 mg IV q6h prn BP > 160/90 * Titrate up antihypertensive therapy as needed (2) Vascular dementia Status: Acute Plan: History significant for vascular dementia. High risk for recurrent ischemic stroke events. -See more detail plan above (3) Nutrition, metabolism, and development symptoms Status: Acute Plan: Diet: NPO until evaluated with swallow test Electrolyte: unremarkable, continue to monitor Fluids: NS at 75 DVT PPX: SCDs until EEG is completed GI PPX: not indicated Chronic conditions: * BPH: continue home tamsulosin (Yoli Daigle MD) Problem Qualifiers (1) Altered mental state: Qualified Code: R41.82 - Altered mental status, unspecified altered mental status type Yoli Daigle MD Aug 05, 2016 08:21 Yuliana Plaza MD Aug 05, 2016 11:48
[2016-08-05] MEDS: ASPIRIN 81 MG CHEW TAB CHEW SCH (08:50)
[2016-08-05] MEDS: TAMSULOSIN HCL 0.4 MG CAP PO SCH (08:51)
[2016-08-05] MEDS: SODIUM CHLORIDE 0.9% FLUSH 5 ML FLUSH IVF SCH ×2 (08:52→20:32)
[2016-08-05] MEDS ORDERED: ASPIRIN 325 MG TAB PO SCH (09:00)
--- NOTE | 2016-08-05 09:22 | HHI.PR ---
Review/Management Diagnosis Encephalopathy Resolving Possible etiology infection/metabolite derangement H/o dementia Plan 1. Neuro checks q. 1 hourly. 2.Monitoring intensive care unit. 3 Telemetry. 4. Continue aspirin 81 mg home dose. 5. DVT prophylaxis - SCDs. 6. GI prophylaxis. Diagnosis/Plan: Subjective Subjective Comments Patient is awake, alert, oriented to person not to place or time Mild improvement of neurologic status EEG with no ictal activity, encephalopathic MRI brain with no acute intracranial abnormality, but extensive white matter disease Active Medications Current Medications Medications (Trade) Dose Ordered Sig/Kendrick Route Start Time Stop Time Status Last Admin (NS Flush) 2 ml BID IVF 08/04/16 21:00 08/05/16 08:52 (NS Flush) 2 ml UNSCH PRN IVF 08/04/16 13:00 (Vasotec Inj) 1.25 mg Q4H PRN IV 08/04/16 13:00 (D50w (Vial) Inj) 25 ml UNSCH PRN IV PUSH 08/04/16 13:00 (Glucagon Inj) 1 mg UNSCH PRN IM/SQ 08/04/16 13:00 (Lipitor) 20 mg HS PO 08/04/16 21:00 08/04/16 21:20 Tamsulosin HCl 0.4 mg 0.4 mg DAILY PO 08/05/16 09:00 08/05/16 08:51 (NS 1000 ml Inj) 1,000 ml @ 75 mls/hr [id number] IV 08/04/16 13:45 08/04/16 15:03 (Tylenol) 650 mg Q6H PRN PO 08/04/16 13:45 ([place] 5-325 Mg) 1 tab Q4H PRN PO 08/04/16 13:45 ([place] 7.5-325 Mg) 1 tab Q4H PRN PO 08/04/16 13:45 (Morphine Inj) 2 mg Q3H PRN IV 08/04/16 13:45 (Narcan Inj) 0.4 mg UNSCH PRN IV 08/04/16 13:45 (Flu (Quadrivalent) Vaccine Inj) 0.5 ml ONCE ONCE IM 08/05/16 10:00 08/05/16 10:01 (Aspirin Chew) 81 mg DAILY CHEW 08/05/16 09:00 08/05/16 08:50 (Haldol Inj) 1 mg ONCE PRN IM 08/05/16 08:00 08/05/16 23:59 Allergies Allergies Coded Allergies No Known Allergies (Unverified08/04/16) Exam I&O / VS 08/04/16 08/04/16 08/05/16 15:00 23:00 07:00 Intake Total 611 ml 515 ml Output Total 275 ml 250 ml Balance 336 ml 265 ml Intake IV Total 611 ml 515 ml Output Urine Total 275 ml 250 ml Vital Signs Date Time Temp Pulse Resp B/P Pulse Ox O2 Delivery O2 Flow Rate FiO2 08/05/16 08:12 95 Nasal Cannula 3.00 08/05/16 08:00 98.3 62 24 188/88 99 08/05/16 08:00 62 08/05/16 06:01 66 08/05/16 06:00 76 08/05/16 06:00 98.0 66 32 167/75 95 08/05/16 04:00 69 08/05/16 02:00 69 08/05/16 00:00 98.4 65 14 165/72 96 08/05/16 00:00 65 08/04/16 22:00 95 08/04/16 20:00 98.2 100 19 178/74 96 08/04/16 20:00 100 08/04/16 18:00 112 08/04/16 16:00 97.8 100 20 152/96 98 08/04/16 16:00 100 08/04/16 15:00 106 08/04/16 14:15 142/99 08/04/16 12:04 93 176/104 Nasal Cannula 3 08/04/16 10:58 84 140/64 Nasal Cannula 3 08/04/16 10:22 67 149/83 100 Nasal Cannula 3 08/04/16 10:00 81 20 179/95 92 Nasal Cannula 2 08/04/16 10:00 100 Nasal Cannula 08/04/16 09:59 63 179/95 100 Nasal Cannula 2 08/04/16 09:52 63 162/92 100 Nasal Cannula 2 08/04/16 09:45 65 187/91 100 Nasal Cannula 2 08/04/16 09:37 98.5 68 20 199/100 100 08/04/16 09:30 100 Nasal Cannula 2.00 08/04/16 09:30 100 2.00 Exam Comments GENERAL: The patient is awake, alert to person, cassi time or place. HEENT: Atraumatic, normocephalic. Unable to assess hearing and vision. NECK: No signs of meningeal irritation. Carotids - no carotid bruits. CARDIOVASCULAR: Regular rate and rhythm. RESPIRATORY: Clear to auscultation. No wheezes. MUSCULOSKELETAL: Moves all extremities equally with no clubbing, cyanosis or edema. NEUROLOGICAL: The patient is awake, alert, not oriented to place or time, moves all extremities spontaneously. cranial nerves I-XII are grossly intact. No gaze paresis. Pupils are 3 mm, bilaterally, equal. No noted facial palsy. Reflexes are 2+ bilateral. Plantars are bilaterally downgoing. Objective Radiology Results Last 72 hours Impressions Head Magnetic Resonance Angiography 08/04/16 0000 Signed Impressions: Service Date/Time: Thursday, August 04, 2016 22:29 - CONCLUSION: No acute disease. 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 Roland Joya MD Chest X-Ray 08/04/16 0000 Signed Impressions: Service Date/Time: Thursday, August 04, 2016 13:35 - CONCLUSION: No acute disease. Manny Fuller MD Brain MRI 08/04/16 0000 Signed Impressions: Service Date/Time: Thursday, August 04, 2016 22:29 - CONCLUSION: 1. Atrophy and extensive white matter disease without evidence for acute infarction. Robert Wallis MD Micro and Labs Laboratory Tests Test 08/04/16 08/04/16 08/04/16 08/04/16 09:40 09:41 10:10 13:14 Bedside Hemoglobin 13.6 Bedside Hematocrit 40.0 Prothrombin Time 11.8 Prothromb Time International 1.1 Ratio Activated Partial 29.6 Thromboplast Time Fibrinogen 270 Bedside Sodium 140 Bedside Potassium 4.8 Bedside Chloride 102 Bedside Blood Urea Nitrogen 28 Bedside Creatinine 1.0 Bedside Glucose 93 Lactic Acid Level 1.1 Total Creatine Kinase 251 Troponin I LESS THAN 0.02 0.03 Blood Type O POSITIVE Antibody Screen NEGATIVE Blood Bank Comment White Blood Count 7.2 Red Blood Count 4.49 Hemoglobin 13.4 Hematocrit 40.0 Mean Corpuscular Volume 89.1 Mean Corpuscular Hemoglobin 29.8 Mean Corpuscular Hemoglobin 33.4 Concent Red Cell Distribution Width 14.4 Platelet Count 235 Mean Platelet Volume 8.2 Neutrophils (%) (Auto) 60.3 Lymphocytes (%) (Auto) 22.8 Monocytes (%) (Auto) 11.2 Eosinophils (%) (Auto) 4.9 Basophils (%) (Auto) 0.8 Neutrophils # (Auto) 4.3 Lymphocytes # (Auto) 1.6 Monocytes # (Auto) 0.8 Eosinophils # (Auto) 0.4 Basophils # (Auto) 0.1 CBC Comment DIFF FINAL Differential Comment Urine Color LIGHT-YELLOW Urine Turbidity CLEAR Urine pH 7.5 Urine Specific [place] 1.011 Urine Protein NEG Urine Glucose (UA) NEG Urine Ketones 10 Urine Occult Blood NEG Urine Nitrite NEG Urine Bilirubin NEG Urine Urobilinogen LESS THAN 2.0 Urine Leukocyte Esterase NEG Urine RBC 1 Urine WBC LESS THAN 1 Urine Hyaline Casts 2 Urine Mucus FEW Urine Opiates Screen NEG Urine Barbiturates Screen NEG Urine Amphetamines Screen NEG Urine Benzodiazepines Screen NEG Urine Cocaine Screen NEG Urine Cannabinoids Screen NEG Total Bilirubin 0.2 Direct Bilirubin 0.1 Indirect Bilirubin 0.1 Aspartate Amino Transf 14 (AST/SGOT) Alanine Aminotransferase 10 (ALT/SGPT) Alkaline Phosphatase 13 Total Protein 2.5 Albumin 1.1 Thyroid Stimulating Hormone 0.576 3rd Gen Test 08/04/16 08/04/16 08/05/16 16:00 19:17 03:44 Nasal Screen MRSA (PCR) NEGATIVE Ammonia 17 Troponin I LESS THAN 0.02 Triglycerides Level 63 Cholesterol Level 124 LDL Cholesterol 49 HDL Cholesterol 62.4 Cholesterol/HDL Ratio 1.98 Lennox Ceron MD Aug 05, 2016 09:21
[2016-08-05] MEDS ORDERED: INFLUENZA VIRUS VACCINE (QUADRIVALENT) 0.5 ML SYR IM ONE (10:00)
[2016-08-05] MEDS: ENALAPRILAT 1.25 MG/ML VIAL IV PRN ×2 (12:11→23:09)
[2016-08-05 13:34] LABS: HEMOGLOBIN A1a 0.9 %; HEMOGLOBIN A1b 1.1 %; HEMOGLOBIN F 0.7 %; HEMOGLOBIN LA1C 1.9 %
[2016-08-05 13:35] LABS: HEMOGLOBIN Ao 84.8 %; HEMOGLOBIN P3 5.5 %
[2016-08-05] MEDS: PANTOPRAZOLE SOD 20 MG DELAYED RELEASE TAB PO SCH (13:56)
--- NOTE | 2016-08-05 15:49 | EC ---
Study Study Date:08/05/2016 STUDY CONCLUSIONS SUMMARY - Left ventricle: The cavity size was normal. Wall thickness was normal. Systolic function was normal. The estimated ejection fraction was in the range of 55% to 60%. Wall motion was normal; there were no regional wall motion abnormalities. - Aortic valve: There was very mild stenosis. Valve area: 2.03cm^2(VTI). Valve area: 1.9cm^2 (Vmax). - Mitral valve: Mild regurgitation. - Right ventricle: The cavity size was mildly dilated. Wall thickness was normal. - Pulmonic valve: Mild regurgitation. If LV function is below 40, please consider prescribing an ACEI or ARB or document rationale for non-use. PROCEDURE DATA STUDY STATUS: Elective. Procedure: Transthoracic echocardiography. Image quality was good. Scanning was performed from the parasternal, apical, and subcostal acoustic windows. Study completion: The patient tolerated the procedure well. Transthoracic echocardiography. M-mode, complete 2D, complete spectral Doppler, and color Doppler. Patient status: Inpatient. CARDIAC ANATOMY LEFT VENTRICLE: The cavity size was normal. Wall thickness was normal. Systolic function was normal. The estimated ejection fraction was in the range of 55% to 60%. Wall motion was normal; there were no regional wall motion abnormalities. AORTIC VALVE: Trileaflet; normal thickness leaflets. Doppler: There was very mild stenosis. No regurgitation. Valve area: 2.03cm^2(VTI). Valve area: 1.9cm^2 (Vmax). Mean gradient: 11mm Hg (S). Peak gradient: 20mm Hg (S). AORTA: Aortic root: The aortic root was normal in size. MITRAL VALVE: Structurally normal valve. Doppler: Transvalvular velocity was within the normal range. There was no evidence for stenosis. Mild regurgitation. LEFT ATRIUM: The atrium was normal in size. RIGHT VENTRICLE: The cavity size was mildly dilated. Wall thickness was normal. PULMONIC VALVE: Doppler: Transvalvular velocity was within the normal range. There was no evidence for stenosis. Mild regurgitation. TRICUSPID VALVE: Structurally normal valve. Doppler: Transvalvular velocity was within the normal range. No regurgitation. PULMONARY ARTERY: The main pulmonary artery was normal-sized. Systolic pressure was within the normal range. RIGHT ATRIUM: The atrium was normal in size. PERICARDIUM: There was no pericardial effusion. SYSTEMIC VEINS: Inferior vena cava: The vessel was normal in size. BASIC MEASUREMENTS ADULT Normal Left ventricle LV internal dimension, ED, chordal level, *34.5 mm 43-52 PLAX LV internal dimension, ES, chordal level, 27 mm 23-38 PLAX Fractional shortening, chordal level, PLAX *22 % >29 LV posterior wall thickness, ED 11.3 mm IVS/LVPW ratio, ED *1.5 <1.3 Ventricular septum Septal thickness, ED 16.9 mm Aortic valve Leaflet separation 23 mm 15-26 Right ventricle RV internal dimension, ED, PLAX 30.8 mm 19-38 BASIC MEASUREMENTS ADULT Normal Aortic valve Leaflet separation 23 mm 15-26 Aorta Root diameter, ED *41 mm 20-37 Left atrium Anterior-posterior dimension, ES 28 mm 19-40 LA/aortic root ratio 0.68 DOPPLER MEASUREMENTS ADULT Normal Aortic valve Peak velocity, S 225 cm/s Mean velocity, S 153 cm/s VTI, S 52.2 cm Mean gradient, S 11 mm Hg Peak gradient, S 20 mm Hg Valve area, VTI 2.03 cm^2 Valve area, Vmax 1.9 cm^2 LEGEND: Mean values are shown as u=mean value. Asterisk (*) camp values outside specified normal range. Prepared and signed by Rene Daigle [id number]
[2016-08-05] MEDS: SODIUM CHLOR 0.9% 1000 ML INJ 1,000 ML IV SCH (16:53)
--- NOTE | 2016-08-05 18:47 | MG ---
cc: BENY COLEMAN MD Lab No: Date: 08/05/2016 Age: Sex: M Race: EEG NUMBER [id number] DATE OF 1930 INDICATION An 86-year-old, history of staring episodes, confusion. DESCRIPTION Burst 2-3 Hz delta with superimposed theta activity, 20-60 microvolts occurring. Post rhythm incremented up to 6-7 Hz. Followed by generalized slowing. The patient appeared to go in to sleep state with frequent arousals. phase reversal C3 epoch 55. A couple tiny phase reversals at T3-T5 epoch 61. Tiny phase reversal T3-T5 epoch 47. Single lead EKG showing sinus rhythm. INTERPRETATION Mild nonspecific changes noted above appearance of mild encephalopathy in addition to sleep state. Clinical correlation. Beny Coleman MD MG/KK /5:32 PM /6:34 PM MTDD
[2016-08-05] MEDS: ATORVASTATIN 20 MG TAB PO SCH (20:32)
[2016-08-05] MEDS: MORPHINE SULFATE 4 MG/ML INJ IV PRN (21:59)
[2016-08-06] VITALS (12 sets, daily range): BP systolic 127–170; BP diastolic 72–89; PULSE 63–91; RESP 14–22; TEMP 97.3–99.4; O2SAT 93–97
[2016-08-06] MEDS: MORPHINE SULFATE 4 MG/ML INJ IV PRN (02:18)
[2016-08-06] MEDS: ENALAPRILAT 1.25 MG/ML VIAL IV PRN ×2 (05:52→08:05)
[2016-08-06] MEDS: INSULIN ASPART SUPPLEMENTAL SCALE SQ SCH ×4 (05:55→19:55)
[2016-08-06] MEDS: SODIUM CHLOR 0.9% 1000 ML INJ 1,000 ML IV SCH ×2 (05:58→08:05)
[2016-08-06] MEDS: SODIUM CHLORIDE 0.9% FLUSH 5 ML FLUSH IVF SCH ×2 (08:06→19:55)
[2016-08-06] MEDS: POLYETHYLENE GLYCOL 17 GM PKG PO SCH (08:06)
[2016-08-06] MEDS: TAMSULOSIN HCL 0.4 MG CAP PO SCH (08:06)
[2016-08-06] MEDS: ASPIRIN 81 MG CHEW TAB CHEW SCH (08:06)
[2016-08-06] MEDS: PANTOPRAZOLE SOD 20 MG DELAYED RELEASE TAB PO SCH (08:06)
[2016-08-06] MEDS ORDERED: LISINOPRIL 20 MG TAB PO STA (08:59)
[2016-08-06] MEDS ORDERED: LISINOPRIL 10 MG TAB PO STA (08:59)
[2016-08-06] MEDS ORDERED: LISINOPRIL 10 MG TAB PO SCH (09:00)
--- NOTE | 2016-08-06 09:49 | HHI.FPPN ---
Subjective Remarks No acute events overnight. Blood pressures have remained elevated overnight and this morning. SBP 200s during evaluation. Has been treated with Vasotec x2. This morning patient is much more awake and alert. He is conversive and answer questions appropriately. Does not know where he is or why he is in the hospital. Based on description of the patient's daughter, patient appears to be back at his baseline. Denies any concerns or complaints. (Gracie Jernigan MD R2) Objective Vitals Vital Signs Date Time Temp Pulse Resp B/P Pulse Ox O2 Delivery O2 Flow Rate FiO2 08/06/16 06:00 78 08/06/16 04:00 63 08/06/16 04:00 97.6 63 16 162/81 97 08/06/16 02:00 91 08/06/16 00:00 70 08/06/16 00:00 99.4 70 14 170/74 96 08/05/16 22:00 75 08/05/16 20:36 95 Nasal Cannula 2.00 08/05/16 20:00 70 08/05/16 20:00 97.7 70 17 127/68 95 08/05/16 16:00 98.0 75 20 140/63 90 08/05/16 12:00 97.4 61 20 159/77 95 08/05/16 10:00 68 I/O 08/05/16 08/05/16 08/05/16 08/06/16 08/06/16 08/06/16 07:00 15:00 23:00 07:00 15:00 23:00 Intake Total 515 ml 485 ml 679 ml 591 ml Output Total 250 ml 150 ml 275 ml 250 ml Balance 265 ml 335 ml 404 ml 341 ml Intake Oral 120 ml 0 ml IV Total 515 ml 485 ml 559 ml 591 ml Output Urine Total 250 ml 150 ml 275 ml 250 ml # Bowel Movements 0 0 (Gracie Jernigan MD R2) Result Diagram: 08/04/16 0941 Objective Remarks GEN: Well-developed, well-nourished patient. No acute distress. Resting comfortably in bed. Discontinued upper and lower extremity restraints as he agreed to stay in the bed. CV: Regular rate and rhythm without obvious murmurs LUNGS: Clear to auscultation bilaterally. Normal respiratory effort. No wheezes , rales, rhonchi. EXT: No edema. No calf tenderness. NEURO/PSYCH: Awake, alert. Oriented to self but not to place or time. No focal deficits. Normal speech. Appears to be at baseline. (Gracie Jernigan MD R2) Date of Insertion: Aug 04, 2016 (Gracie Jernigan MD R2) A/P Assessment and Plan 86-year-old male with history significant for vascular dementia. Admitted for altered mental status/stroke alert. Discharge Planning Tomorrow pending control of BP. sdw Dr. Plaza (Gracie Jeringan MD R2) Attending Attestation Patient seen and examined. Case reviewed and discussed with the resident team. Agree with plan of care as discussed with me and documented in the resident note. (Yuliana Plaza MD) Problem List: (1) Altered mental state Status: Resolved Plan: Acute onset of altered mental status that occurred on the morning of . Symptoms initially resolved but had a recurrence in the emergency department; associated with garbled speech. No focal neurological deficits present. Head CT negative. No sign of infarction on brain MRI, MRA. Stroke alert was called but patient was not a candidate for TPA. Diagnosis likely due to TIA as symptoms have completely resolved without findings on head imaging. -CMP, TSH, ammonia, lipid panel unremarkable -A1c 5.7 -Cardiac telemetry -Echo: EF of 55-60%. Mildly dilated right ventricle with mild pulmonic and mitral valve regurgitation. -EEG: Appearance of mild encephalopathy in addition to sleep state. Clinical correlation recommended. 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 Medications: * Aspirin 81mg daily * Lipitor 20mg daily BP Meds: * No home antihypertensives * Increased lisinopril to 40mg daily * Vasotec 1.25 mg IV q6h prn BP > 170/100 * Titrate up antihypertensive therapy as needed, consider adding HCTZ 12.5mg (2) Vascular dementia Status: Acute Plan: History significant for vascular dementia. High risk for recurrent ischemic stroke events. -See more detail plan above (3) HTN (hypertension) Status: Acute Plan: No prior history of hypertension. At hypertensive urgency on admission. See plan above (4) Nutrition, metabolism, and development symptoms Status: Acute Plan: Diet: Regular Electrolyte: unremarkable, continue to monitor Fluids: None DVT PPX: SCDs due to continued elevation of BP GI PPX: Home protonix Chronic conditions: * BPH: continue home tamsulosin (Gracie Jernigan MD R2) Problem Qualifiers (1) Altered mental state: Qualified Code: R41.82 - Altered mental status, unspecified altered mental status type Gracie Jernigan MD R2 Aug 06, 2016 09:49 Yuliana Plaza MD Aug 06, 2016 15:40
[2016-08-06] MEDS ORDERED: DOCUSATE SODIUM 50 MG/SENNA 8.6 MG TAB PO PRN (10:15)
--- NOTE | 2016-08-06 15:27 | HHI.PR ---
Review/Management Diagnosis Encephalopathy, Possible etiology infection/metabolite derangement H/o dementia Plan Patient is stable from neurology standpoint Neurologic exam is non-focal Neurologic testings were unremarkable with no acute neurologic abnormality Back to his baseline cognitive and motor functions Patient may follow up with neurology outpatient Diagnosis/Plan: Subjective Subjective Comments Patient is awake, aware No new complaints I think he is back to his base line cognitive and motor functions of dementia Active Medications Current Medications Medications (Trade) Dose Ordered Sig/Kendrick Route Start Time Stop Time Status Last Admin (NS Flush) 2 ml BID IVF 08/04/16 21:00 08/06/16 08:06 (NS Flush) 2 ml UNSCH PRN IVF 08/04/16 13:00 (D50w (Vial) Inj) 25 ml UNSCH PRN IV PUSH 08/04/16 13:00 (Glucagon Inj) 1 mg UNSCH PRN IM/SQ 08/04/16 13:00 (Lipitor) 20 mg HS PO 08/04/16 21:00 08/05/16 20:32 (Flomax) 0.4 mg DAILY PO 08/05/16 09:00 08/06/16 08:06 (Tylenol) 650 mg Q6H PRN PO 08/04/16 13:45 (Captiva 5-325 Mg) 1 tab Q4H PRN PO 08/04/16 13:45 (Captiva 7.5-325 Mg) 1 tab Q4H PRN PO 08/04/16 13:45 (Morphine Inj) 2 mg Q3H PRN IV 08/04/16 13:45 08/06/16 02:18 (Narcan Inj) 0.4 mg UNSCH PRN IV 08/04/16 13:45 (Aspirin Chew) 81 mg DAILY CHEW 08/05/16 09:00 08/06/16 08:06 (Vasotec Inj) 1.25 mg Q4H PRN IV 08/05/16 12:00 08/06/16 08:05 (Protonix) 20 mg DAILY PO 08/05/16 14:00 08/06/16 08:06 (Miralax) 17 gm DAILY PO 08/06/16 09:00 08/06/16 08:06 (Prinivil) 40 mg DAILY PO 08/07/16 09:00 (Reva-Colace) 2 tab BID PRN PO 08/06/16 10:15 Allergies Allergies Coded Allergies No Known Allergies (Unverified08/04/16) Exam I&O / VS 08/05/16 08/05/16 08/06/16 15:00 23:00 07:00 Intake Total 485 ml 679 ml 591 ml Output Total 150 ml 275 ml 250 ml Balance 335 ml 404 ml 341 ml Intake Oral 120 ml 0 ml IV Total 485 ml 559 ml 591 ml Output Urine Total 150 ml 275 ml 250 ml # Bowel Movements 0 0 Vital Signs Date Time Temp Pulse Resp B/P Pulse Ox O2 Delivery O2 Flow Rate FiO2 08/06/16 08:33 94 Nasal Cannula 2.00 08/06/16 08:00 98.6 86 22 127/89 96 08/06/16 08:00 89 08/06/16 06:00 78 08/06/16 04:00 63 08/06/16 04:00 97.6 63 16 162/81 97 08/06/16 02:00 91 08/06/16 00:00 70 08/06/16 00:00 99.4 70 14 170/74 96 08/05/16 22:00 75 08/05/16 20:36 95 Nasal Cannula 2.00 08/05/16 20:00 70 08/05/16 20:00 97.7 70 17 127/68 95 08/05/16 16:00 98.0 75 20 140/63 90 Exam Comments GENERAL: The patient is awake, alert to person, not to time(1966) or place (I am here). HEENT: Atraumatic, normocephalic. Unable to assess hearing and vision. NECK: No signs of meningeal irritation. Carotids - no carotid bruits. CARDIOVASCULAR: Regular rate and rhythm. RESPIRATORY: Clear to auscultation. No wheezes. MUSCULOSKELETAL: Moves all extremities equally with no clubbing, cyanosis or edema. NEUROLOGICAL: The patient is awake, alert, not oriented to place (I am here ) or time(1966), intact speech, intact naming, reading and repetition, moves all extremities spontaneously. cranial nerves I-XII are grossly intact. No gaze paresis. Pupils are 3 mm, bilaterally, equal. No noted facial palsy. Reflexes are 2+ bilateral. Plantars are bilaterally downgoing. Objective Radiology Results Last 72 hours Impressions Head Magnetic Resonance Angiography 08/04/16 0000 Signed Impressions: Service Date/Time: Thursday, August 04, 2016 22:29 - CONCLUSION: No acute disease. 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 Roland Joya MD Chest X-Ray 08/04/16 0000 Signed Impressions: Service Date/Time: Thursday, August 04, 2016 13:35 - CONCLUSION: No acute disease. Manny Fuller MD Brain MRI 08/04/16 0000 Signed Impressions: Service Date/Time: Thursday, August 04, 2016 22:29 - CONCLUSION: 1. Atrophy and extensive white matter disease without evidence for acute infarction. MD Jie Jack Raid G. MD Aug 06, 2016 15:27 Lennox Ceron MD Aug 06, 2016 15:27
[2016-08-06] MEDS ORDERED: HALOPERIDOL LACTATE 5 MG/ML AMP IM ONE (18:45)
[2016-08-06] MEDS: ATORVASTATIN 20 MG TAB PO SCH (19:55)
[2016-08-07] VITALS (7 sets, daily range): BP systolic 129–252; BP diastolic 64–118; PULSE 71–100; RESP 14–24; TEMP 97.6–98.6; O2SAT 93–97
[2016-08-07 05:12] LABS: AUTOMATED NEUTROPHIL # 6.8 TH/MM3 (1.8-7.7); BASOPHIL # 0.1 TH/MM3 (0-0.2); BASOPHIL % 0.7 % (0.0-2.0); EOSINOPHIL # 0.6 TH/MM3 (0-0.4); EOSINOPHIL % 6.2 % (0.0-4.0); HEMATOCRIT 40.3 % (39.0-51.0); HEMO FLAGS DIFF FINAL; LYMPH % 11.1 % (9.0-44.0); LYMPHOCYTE # 1.1 TH/MM3 (1.0-4.8); MEAN CELL VOLUME 89.9 FL (80.0-100.0); MEAN CORPUSCULAR HEMOGLOBIN 29.3 PG (27.0-34.0); MEAN CORPUSCULAR HGB CONC 32.6 % (32.0-36.0); MONO % 11.4 % (0.0-8.0); NEUT % 70.6 % (16.0-70.0); PLATELET COUNT 211 TH/MM3 (150-450); RED BLOOD COUNT 4.48 MIL/MM3 (4.50-5.90); RED CELL DISTRIBUTION WIDTH 14.6 % (11.6-17.2); WHITE BLOOD COUNT 9.7 TH/MM3 (4.0-11.0)
[2016-08-07 05:34] LABS: BICARBONATE 25.6 MEQ/L (21.0-32.0); POTASSIUM 3.5 MEQ/L (3.5-5.1)
[2016-08-07] MEDS: ENALAPRILAT 1.25 MG/ML VIAL IV PRN (05:49)
[2016-08-07] MEDS: INSULIN ASPART SUPPLEMENTAL SCALE SQ SCH ×2 (05:49→11:00)
[2016-08-07] MEDS: POLYETHYLENE GLYCOL 17 GM PKG PO SCH (08:41)
[2016-08-07] MEDS: ASPIRIN 81 MG CHEW TAB CHEW SCH (08:42)
[2016-08-07] MEDS: PANTOPRAZOLE SOD 20 MG DELAYED RELEASE TAB PO SCH (08:42)
[2016-08-07] MEDS: TAMSULOSIN HCL 0.4 MG CAP PO SCH (08:42)
[2016-08-07] MEDS ORDERED: LISINOPRIL 20 MG TAB PO SCH (09:00)
--- NOTE | 2016-08-07 10:06 | HHI.FPPN ---
Subjective Remarks Pt seen and examined this morning. Pt placed in upper restraints overnight and given dose of Haldol for agitation. This morning, he is awake, alert. Knows his name, but is unsure of where he is. He feels confused this morning. Otherwise, no complaints. (Ruddy Gonzalez MD R1) Objective Vitals Vital Signs Date Time Temp Pulse Resp B/P Pulse Ox O2 Delivery O2 Flow Rate FiO2 08/07/16 09:30 97 Nasal Cannula 2.00 08/07/16 04:00 97.9 100 24 178/91 97 08/07/16 04:00 84 08/07/16 00:00 97.6 71 14 129/64 96 08/07/16 00:00 71 08/06/16 20:00 97.9 89 22 156/72 95 08/06/16 20:00 89 08/06/16 19:50 97 Nasal Cannula 2.00 08/06/16 16:00 68 08/06/16 16:00 97.3 68 20 166/81 93 08/06/16 14:00 81 08/06/16 12:00 86 08/06/16 12:00 98.4 86 22 127/89 96 08/06/16 10:00 83 I/O 08/06/16 08/06/16 08/06/16 08/07/16 08/07/16 08/07/16 07:00 15:00 23:00 07:00 15:00 23:00 Intake Total 591 ml 961 ml 240 ml 100 ml Output Total 250 ml 1200 ml 425 ml Balance 341 ml -239 ml -185 ml 100 ml Intake Oral 0 ml 520 ml 240 ml 100 ml IV Total 591 ml 441 ml Output Urine Total 250 ml 1200 ml 425 ml # Voids 2 3 # Bowel Movements 0 (Ruddy Gonzalez MD R1) Result Diagram: 08/07/16 0358 08/07/16 0358 Objective Remarks GEN: Well-developed, well-nourished patient. No acute distress. Resting comfortably in bed. CV: Regular rate and rhythm without obvious murmurs LUNGS: Clear to auscultation bilaterally. Normal respiratory effort. No wheezes , rales, rhonchi. EXT: No edema. No calf tenderness. NEURO/PSYCH: Awake, alert. Oriented to self but not to place or time. No focal deficits. Normal speech. (Ruddy Gonzalez MD R1) Date of Insertion: Aug 04, 2016 (Ruddy Gonzalez MD R1) A/P Assessment and Plan 86-year-old male with history significant for vascular dementia. Admitted for altered mental status/stroke alert. Discharge Planning Pending cognitive improvement and placement on discharge wdw Dr. Plaza (Ruddy Gonzalez MD R1) Attending Attestation Patient seen and examined. Case reviewed and discussed with the resident team. Agree with plan of care as discussed with me and documented in the resident note. (Yuliana Plaza MD) Problem List: (1) Altered mental state Status: Resolved Plan: Acute onset of altered mental status that occurred on the morning of . Symptoms initially resolved but had a recurrence in the emergency department ; associated with garbled speech. No focal neurological deficits present. Head CT negative. No sign of infarction on brain MRI, MRA. Stroke alert was called but patient was not a candidate for TPA. Diagnosis likely due to TIA as symptoms have completely resolved without findings on head imaging. -Pt has remained afebrile during admission and no signs of infection/metabolic abnormality -CMP, TSH, ammonia, lipid panel unremarkable -A1c 5.7 -Cardiac telemetry -Echo: EF of 55-60%. Mildly dilated right ventricle with mild pulmonic and mitral valve regurgitation. -EEG: Appearance of mild encephalopathy in addition to sleep state. Clinical correlation recommended. -Sundowing and agitation at night, attempt redirection and sitter before restraints and Haldol. 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 Medications: * Aspirin 81mg daily * Lipitor 20mg daily BP Meds: * No home antihypertensives * Increased lisinopril to 40mg daily * Vasotec 1.25 mg IV q6h prn BP > 170/100 * Titrate up antihypertensive therapy as needed, consider adding HCTZ 12.5mg (2) Vascular dementia Status: Acute Plan: History significant for vascular dementia. High risk for recurrent ischemic stroke events. -See more detailed plan above (3) HTN (hypertension) Status: Acute Plan: No prior history of hypertension. At hypertensive urgency on admission. See plan above (4) Nutrition, metabolism, and development symptoms Status: Acute Plan: Diet: Regular Electrolyte: unremarkable, continue to monitor Fluids: None DVT PPX: SCDs GI PPX: Home protonix Chronic conditions: * BPH: continue home tamsulosin (Ruddy Gonzalez MD R1) Problem Qualifiers (1) Altered mental state: Qualified Code: R41.82 - Altered mental status, unspecified altered mental status type (2) Vascular dementia: Qualified Code: F01.51 - Vascular dementia with behavior disturbance (3) HTN (hypertension): Qualified Code: I10 - Essential hypertension Ruddy Gonzalez MD R1 Aug 07, 2016 10:06 Yuliana Plaza MD Aug 07, 2016 15:26
[2016-08-07] MEDS ORDERED: HYDR12.57 PO (12:23)
[2016-08-07] MEDS ORDERED: POLY17S PO (12:23)
[2016-08-07] MEDS ORDERED: LISI40TA PO (12:23)
[2016-08-07] MEDS ORDERED: SENN1TAB PO (12:23)
[2016-08-07] MEDS ORDERED: HYDROCHLOROTHIAZIDE 12.5 MG CAP PO SCH (12:30)
[2016-08-07] MEDS: SODIUM CHLORIDE 0.9% FLUSH 5 ML FLUSH IVF SCH (13:13)
--- NOTE | 2016-08-07 13:35 | HHI.DCPOC ---
Discharge Care Plan Diagnosis: (1) Altered mental state (2) HTN (hypertension) (3) Vascular dementia (4) TIA (transient ischemic attack) Goals to Promote Your Health * To prevent worsening of your condition and complications * To maintain your health at the optimal level Directions to Meet Your Goals Take your medications as prescribed Follow your dietary instruction Follow activity as directed Keep your appointments as scheduled Take your immunizations and boosters as scheduled If your symptoms worsen call your PCP, if no PCP go to Urgent Care Center or Emergency Room Smoking is Dangerous to Your Health. Avoid second hand smoke Call the 24-hour hour crisis hotline for domestic abuse at Gracie Jernigan MD R2 Aug 07, 2016 13:34
--- NOTE | 2016-08-07 13:52 | HHI.DS ---
Discharge Summary Admission Date Aug 04, 2016 at 12:14 Discharge Date: Aug 07, 2016 Admitting Diagnosis intermittent expressive aphasia (1) Altered mental state Plan: Acute onset of altered mental status that occurred on the morning of . Symptoms initially resolved but had a recurrence in the emergency department ; associated with garbled speech. No focal neurological deficits present. Head CT negative. No sign of infarction on brain MRI, MRA. Stroke alert was called but patient was not a candidate for TPA. Diagnosis likely due to TIA as symptoms have completely resolved without findings on head imaging. -Pt has remained afebrile during admission and no signs of infection/metabolic abnormality -CMP, TSH, ammonia, lipid panel unremarkable -A1c 5.7 -Cardiac telemetry -Echo: EF of 55-60%. Mildly dilated right ventricle with mild pulmonic and mitral valve regurgitation. -EEG: Appearance of mild encephalopathy in addition to sleep state. Clinical correlation recommended. -owing and agitation at night, attempt redirection and sitter before restraints and Haldol. 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 Medications: * Aspirin 81mg daily * Lipitor 20mg daily BP Meds: * No home antihypertensives * Increased lisinopril to 40mg daily * Vasotec 1.25 mg IV q6h prn BP > 170/100 * Titrate up antihypertensive therapy as needed, consider adding HCTZ 12.5mg (2) Vascular dementia Plan: History significant for vascular dementia. High risk for recurrent ischemic stroke events. -See more detailed plan above (3) HTN (hypertension) Plan: No prior history of hypertension. At hypertensive urgency on admission. See plan above (4) Nutrition, metabolism, and development symptoms Plan: Diet: Regular Electrolyte: unremarkable, continue to monitor Fluids: None DVT PPX: SCDs GI PPX: Home protonix Chronic conditions: * BPH: continue home tamsulosin [facility] Brief History History obtained from daughter: ONEL Patient is an 86-year-old male with history significant for vascular dementia who presented here today due to altered mental status. This morning patient was going to breakfast and then began to stare at his food and acting confused at 8:30 AM. The assisted living facility called the ambulance and transported patient to the hospital for concern of a stroke. On arrival to the ED, symptoms had resolved but then recurred again at 10:30 AM. He started acting confused and gargling words. Intermittently answering questions such as his name but unable to answer more current event questions. Prior to the onset of symptoms today, daughter reports that patient was otherwise his normal self. He had been complaining of a headache over the last week and reported a fall a few days ago but was able to get up independently. Daughter denies any symptoms of fever/chills, abdominal pain, dysuria, cough. Daughter reports that he follows with [facility] who does cry ultrasounds on a regular basis but has been appropriate for age. Patient is unable to thoroughly answer questions but does deny pain. CBC/BMP: 08/07/16 0358 08/07/16 0358 Significant Findings Laboratory Tests Test 08/04/16 08/05/16 08/07/16 19:17 03:44 03:58 Troponin I LESS THAN 0.02 NG/ML (0.02-0.05) HDL Cholesterol 62.4 MG/DL (40.0-60.0) Red Blood Count 4.48 MIL/MM3 (4.50-5.90) Neutrophils (%) (Auto) 70.6 % (16.0-70.0) Monocytes (%) (Auto) 11.4 % (0.0-8.0) Eosinophils (%) (Auto) 6.2 % (0.0-4.0) Monocytes # (Auto) 1.1 TH/MM3 (0-0.9) Eosinophils # (Auto) 0.6 TH/MM3 (0-0.4) Chloride Level 108 MEQ/L (98-107) PE at Discharge GEN: Well-developed, well-nourished patient. No acute distress. Resting comfortably in bed. CV: Regular rate and rhythm without obvious murmurs LUNGS: Clear to auscultation bilaterally. Normal respiratory effort. No wheezes , rales, rhonchi. EXT: No edema. No calf tenderness. NEURO/PSYCH: Awake, alert. Oriented to self but not to place or time. No focal deficits. Normal speech. Hospital Course Patient is a 86yo male with a history of vascular dementia. Presented due to intermittent episodes of confusion and also found to have elevated BP. Was initially thought to be due to stroke but CT and MRI were unremarkable. Neurology evaluated pt on admission and stated that patient was not a candidate for TPA and there were no focal deficits. EEG and echo were then ordered which were essentially unremarkable. EEG did show mild encephalopathy but patient did receive haldol prior to study. ECHO showed and EF of 55-60& with mild mitral and pulmonic valve regurgitation and mild RV dilation but overall unremarkable. On day 2 of admission, patient's mental status improved drastically and appeared closer to baseline. Suspect symptoms may have been due to TIA as work up has otherwise been negative. He does experience sun downing while in the hospital but we suspect this will improve once back in a more stable and quite facility. HTN was treated with lisinopril and HCTZ. Some BPs were taken when patient was agitated which we suspect falsely elevated BP. Due to deconditioning , patient would benefit from rehab at a SNF with plans of eventually returning to [facility]. Condition was discussed with daughter who agreed with plan. Patient has been clinically stable and asymptotic and was discharged in stable condition. Pt Condition on Discharge: Stable Discharge Disposition: Discharge to SNF Discharge Instructions DIET: Follow Instructions for: As Tolerated, No Restrictions Activities you can perform: Regular-No Restrictions Follow up Referrals: Appointment for Follow Up - 3-5 Days with PCP Neurology - 1 Week with Lennox Ceron MD New Medications: Hydrochlorothiazide (Hydrochlorothiazide) 12.5 Mg Cap 12.5 MG PO DAILY #30 Ref 0 CAP Lisinopril (Lisinopril) 40 Mg Tab 40 MG PO DAILY Blood Pressure Management #30 Ref 0 TAB Polyethylene Glycol 3350 Powder (Polyethylene Glycol 3350 Powder) 17 Gm Pow 17 GM PO DAILY #1 BOTTLE Sennosides-Docusate Sodium (Senna Plus 8.6-50 mg) 1 Tab Tab 2 TAB PO BID PRN CONSTIPATION #60 TAB Continued Medications: Aspirin (Aspirin) 81 Mg Chew 81 MG CHEW DAILY Ref 0 TAB Simvastatin (Simvastatin) 20 Mg Tab 20 MG PO DAILY Cholesterol Management #30 Ref 0 TAB Tamsulosin (Tamsulosin) 0.4 Mg Cap 0.4 MG PO HS Manage Prostate Problems #30 Ref 0 CAP Gracie Jernigan MD R2 Aug 07, 2016 13:52
== END 2016-08-07 15:30 | DRG 69 ==
LOC: NEPC 09:36 → NEDA 12:14 → HIME 14:25 → HIMW 08-05 11:20
PROVIDERS: ADMIT Family Medicine; ATTEND Family Medicine
DX: G45.9 Transient cerebral ischemic attack, unspecified (principal); G93.40 Encephalopathy, unspecified; F01.51 Vascular dementia, unspecified severity, with behavioral disturbance; I34.0 Nonrheumatic mitral (valve) insufficiency; R47.01 Aphasia; I37.1 Nonrheumatic pulmonary valve insufficiency; I16.0 Hypertensive urgency; Z66 Do not resuscitate; H91.91 Unspecified hearing loss, right ear; Z86.73 Personal history of transient ischemic attack (TIA), and cerebral infarction without residual deficits; E78.5 Hyperlipidemia, unspecified; N40.0 Benign prostatic hyperplasia without lower urinary tract symptoms; Z87.11 Personal history of peptic ulcer disease; Z87.891 Personal history of nicotine dependence; Z80.9 Family history of malignant neoplasm, unspecified; Z79.82 Long term (current) use of aspirin; Z78.1 Physical restraint status
CPT/HCPCS: 70450; 70544; 70551; 71010; 80048; 80061; 80076; 80307; 81001; 82140; 82435; 82550; 82565; 82947; 82948; 83036; 83605; 84132; 84295; 84443; 84484; 84520; 85025; 85384; 85610; 85730; 86850; 86900; 86901; 87641; 93005; 93306; 95819; 96374; J1630; J1815; J2060; J2270; J7030; P9612